=== PATIENT | female | born 1995 | race Two or more races ===

== ENCOUNTER 2023-04-01 20:46 | Emergency (ER) | payer SELFPAY ==
[~2023-04-01] VITALS: Ht 160 cm; Wt 100.0 kg
[2023-04-01] MEDS ORDERED: IBUP-1456 PO (22:19)
[2023-04-01] MEDS ORDERED: CYCL-837 PO (22:19)
[2023-04-01 22:51] VITALS: BP 124/88; PULSE 80; RESP 18; TEMP 99.1; O2SAT 97
== END 2023-04-01 23:01 | disposition home or self-care (01) ==
LOC: EDBD 20:46 → ER 20:46
DX: S16.1XXA Strain of muscle, fascia and tendon at neck level, initial encounter (principal); S39.012A Strain of muscle, fascia and tendon of lower back, initial encounter; S46.912A Strain of unspecified muscle, fascia and tendon at shoulder and upper arm level, left arm, initial encounter; R51.9 Headache, unspecified; V43.52XA Car driver injured in collision with other type car in traffic accident, initial encounter; Y93.89 Activity, other specified; Y92.410 Unspecified street and highway as the place of occurrence of the external cause; Y99.8 Other external cause status
CPT/HCPCS: 70450; 72100; 72125; 73030